=== PATIENT | male | born 1950 | race Caucasian/White ===

== ENCOUNTER 2022-05-12 16:00 | Emergency (ER) | payer OTHER, BC ==
[2022-05-12] MEDS ORDERED: Lidocaine 1% PF 5 ML VIAL ONE (20:43)
[2022-05-12] MEDS ORDERED: Boostrix 0.5 ML (Tdap) VIAL (>/=7 yrs of age) ONE (21:20)
[2022-05-13] MEDS ORDERED: Vancomycin 1 GM in Premix Bag 1 BAG IVPB SCH (00:15)
== END 2022-05-12 22:58 | disposition home or self-care (01) ==
LOC: ERS 16:00
DX: S61.317A Laceration without foreign body of left little finger with damage to nail, initial encounter (principal); W01.0XXA Fall on same level from slipping, tripping and stumbling without subsequent striking against object, initial encounter; Y93.02 Activity, running; Z23 Encounter for immunization
CPT/HCPCS: 90471; 90715

== ENCOUNTER 2022-05-13 08:35 | Day surgery (SDC) | payer BC ==
[2022-05-13] MEDS ORDERED: Neomycin-Polymyxin 1 ML AMP ONE (08:58)
[2022-05-13] MEDS ORDERED: Bupivacaine PF 0.5% 30 ML VIAL ONE (08:58)
[2022-05-13] MEDS ORDERED: Bacitracin Zinc Ointment 30 gm TUBE ONE (08:58)
[2022-05-13] MEDS ORDERED: fentaNYL PF 100 MCG/2 ML SYRINGE ONE (09:07)
[2022-05-13] MEDS ORDERED: CEFAZOLIN 2 GM VIAL ONE (09:13)
[2022-05-13] MEDS ORDERED: Sodium Chloride 0.9% 0 ML ONE (09:13)
[2022-05-13] MEDS ORDERED: Vancomycin 1 GM/200 ML (FROZEN) BAG ONE (09:23)
[2022-05-13] MEDS ORDERED: Ondansetron PF 4 MG/2 ML Vial ONE (09:36)
[2022-05-13] MEDS ORDERED: Ketorolac Tromethamine 30 MG/ML VIAL ONE (09:36)
[2022-05-13] MEDS ORDERED: PROPOFOL 200 MG/20 ML VIAL ONE (09:36)
[2022-05-13] MEDS ORDERED: Dexamethasone 20 MG/5 ML VIAL ONE (09:36)
[2022-05-13] MEDS ORDERED: ePHEDrine 50 MG/ML VIAL ONE (09:36)
[2022-05-13] MEDS ORDERED: Lidocaine 1% PF 5 ML VIAL ONE (09:36)
== END 2022-05-13 13:12 | disposition home or self-care (01) ==
LOC: SDC 08:35
PROVIDERS: ATTEND Orthopaedic Surgery Hand Surgery
PROC: 0HQQXZZ Repair Finger Nail, External Approach (ICD-10-PCS; principal; 2022-05-13)
PROC: 0LQ70ZZ Repair Right Hand Tendon, Open Approach (ICD-10-PCS; principal; 2022-05-13)
DX: S66.316A Strain of extensor muscle, fascia and tendon of right little finger at wrist and hand level, initial encounter (principal); S66.314A Strain of extensor muscle, fascia and tendon of right ring finger at wrist and hand level, initial encounter; S61.316A Laceration without foreign body of right little finger with damage to nail, initial encounter; S61.214A Laceration without foreign body of right ring finger without damage to nail, initial encounter; Z88.0 Allergy status to penicillin; Z88.1 Allergy status to other antibiotic agents; W26.9XXA Contact with unspecified sharp object(s), initial encounter
CPT/HCPCS: J1100; J1885; J2405; J2704; J3370-JW; J3490; S0020